=== PATIENT | male | born 1945 | race Caucasian/White ===

== ENCOUNTER 2017-09-21 12:15 | Emergency (ER) | payer MEDICARE, BC ==
--- NOTE | 2017-09-21 15:01 | RAD ---
CHEST TWO VIEWS: HISTORY: Cough. COMPARISON None. FINDINGS: The cardiac silhouette and pulmonary vasculature are unremarkable. The mediastinum is midline with a ortic calcification. Linear atelectasis projects over the left lateral lung base. There is no confl uent air space consolidation, pleural fluid, or pneumothorax evident. IMPRESSION: 1. Chronic obstructive pulmonary disease. 2. Atherosclerosis. POS: [facility]
== END 2017-09-21 15:04 | disposition home or self-care (01) ==
LOC: ERS 12:15
DX: H66.92 Otitis media, unspecified, left ear (principal); F17.200 Nicotine dependence, unspecified, uncomplicated
CPT/HCPCS: 71020